=== PATIENT | male | born 1995 | race Caucasian/White ===

== ENCOUNTER 2018-09-20 23:54 | Emergency (ER) | payer OTHER | END 2018-09-21 01:00 | disposition home or self-care (01) | LOC: E/R 09-21 01:00 | DX: S61.432A Puncture wound without foreign body of left hand, initial encounter (principal); F10.920 Alcohol use, unspecified with intoxication, uncomplicated; F17.210 Nicotine dependence, cigarettes, uncomplicated; W25.XXXA Contact with sharp glass, initial encounter; Y92.9 Unspecified place or not applicable | CPT/HCPCS: 99282 ==